=== PATIENT | male | born 1965 | race Caucasian/White ===

== ENCOUNTER → 2016-10-03 20:37 | Outpatient (CLI) | payer MEDICAID ==
[2016-08-02 08:14] VITALS: BMI 27.7
[~2016-10-03 20:37] MED LIST: NAPROSYN500 MG PO; NORCO 7.5/325 T1 TA1 PO; VENTOLIN HFA18 GM INH; ZANTAC150 MG PO; ZITHROMAX500 MG PO; ZOFRAN ODT4 MG/UDTAB PO
== END | disposition home or self-care (01) ==
LOC: D.SLEEP 20:00
DX: G47.19 Other hypersomnia (principal)